=== PATIENT | male | born 1950 | race Caucasian/White ===

== ENCOUNTER 2018-05-08 08:47 | Day surgery (SDC) | payer MEDICARE ==
[2017-07-29 20:12] VITALS: BMI 30.6
[2018-05-08] MEDS: Lactated Ringer's 1,000 ML IV ONE (11:55)
[2018-05-08] MEDS ORDERED: Propofol 10 mg/ml Inj (20 ML) ONE ×2 (11:58→12:03)
[2018-05-08 13:55] VITALS: BP 122/78; PULSE 81; RESP 20; TEMP 97.9; O2SAT 100
== END 2018-05-08 13:30 | disposition home or self-care (01) ==
LOC: C.ENDO 08:47
PROVIDERS: ATTEND Internal Medicine Gastroenterology
DX: Z12.11 Encounter for screening for malignant neoplasm of colon (principal); D12.5 Benign neoplasm of sigmoid colon; K64.1 Second degree hemorrhoids; E78.5 Hyperlipidemia, unspecified; E11.9 Type 2 diabetes mellitus without complications; I10 Essential (primary) hypertension; Z80.0 Family history of malignant neoplasm of digestive organs